=== PATIENT | male | born 1930 | race Caucasian/White ===

== ENCOUNTER → 2018-07-26 | Outpatient (CLI) | payer MEDICARE, OTHER ==
[~2018-07-26] MED LIST: AMLO5TAB4 PO; APIX5TAB PO; DIGO125T PO; DIGO125T81 PO; DOCU-131 PO; FLUT9.9S INH; FURO40TA6 PO; FURO80TA77 PO; GLYB5TAB3 PO; HYDR-3237 PO; KETO10TA PO; LISI30TA4 PO; METF10002 PO; METO-95 PO; METO-99 PO; METO2.5T PO; METO25TA4 PO; METO50TA82 PO; POTA10TA11 PO; POTA10TA6 PO; PRED5TAB PO; Polyethylene Glycol 3350 PO; SPIR25TA PO; TAMS0.4C2 PO
== END | disposition home or self-care (01) ==
LOC: CFH 10:36
PROVIDERS: ATTEND Internal Medicine Cardiovascular Disease
DX: I08.3 Combined rheumatic disorders of mitral, aortic and tricuspid valves (principal); I10 Essential (primary) hypertension; E78.5 Hyperlipidemia, unspecified
CPT/HCPCS: 93306

== ENCOUNTER → 2020-08-20 | Outpatient (CLI) | payer MEDICARE, OTHER ==
[~2020-08-20] MED LIST changes: -DIGO125T PO; +DIGO125T85 PO
== END | disposition home or self-care (01) ==
LOC: CVU 12:42
PROVIDERS: ATTEND Internal Medicine Cardiovascular Disease
DX: I08.3 Combined rheumatic disorders of mitral, aortic and tricuspid valves (principal); I48.91 Unspecified atrial fibrillation; I11.9 Hypertensive heart disease without heart failure; E78.5 Hyperlipidemia, unspecified; Z86.79 Personal history of other diseases of the circulatory system
CPT/HCPCS: 93306; 93970